=== PATIENT | male | born 1975 | race Caucasian/White ===

== ENCOUNTER 2021-01-05 19:24 | Emergency (ER) | payer OTHER ==
[2021-01-05 20:47] LABS: HEMOGLOBIN 12.9 gm/dl (14.0-17.5); RED BLOOD COUNT 4.35 M/UL (4.20-5.50); WHITE BLOOD COUNT 7.3 K/UL (4.5-11.0)
[2021-01-05 21:15] LABS: BUN/CREATININE RATIO 18 (0-10)
[2021-01-05] MEDS ORDERED: IBUPROFEN600 MG PO (21:49)
== END 2021-01-05 21:54 | disposition home or self-care (01) ==
LOC: ER1 19:24
PROVIDERS: Physician Assistant Medical
DX: S60.221A Contusion of right hand, initial encounter (principal); S80.212A Abrasion, left knee, initial encounter; M25.561 Pain in right knee; R60.0 Localized edema; F17.210 Nicotine dependence, cigarettes, uncomplicated; W22.8XXA Striking against or struck by other objects, initial encounter
CPT/HCPCS: 71045; 73130; 73564; 80053; 82550; 82553; 83874; 83880; 84484; 85025; 93005; 99284

== ENCOUNTER 2021-02-10 16:42 | Inpatient (IN) | payer OTHER ==
[~2021-02-10] VITALS: Ht 180.3 cm; Wt 83.9 kg
[~2021-02-10 16:42] MED LIST: IBUPROFEN600 MG PO
[2021-02-10 18:14] LABS: HEMOGLOBIN 13.8 gm/dl (14.0-17.5); RED BLOOD COUNT 4.63 M/UL (4.20-5.50); WHITE BLOOD COUNT 11.9 K/UL (4.5-11.0)
[2021-02-10 18:32] LABS: BUN/CREATININE RATIO 12 (0-10)
[2021-02-11 02:10] LABS: BORDETELLA PARAPERTUSSIS Not Detected (Not Detectd); BORDETELLA PERTUSSIS Not Detected (Not Detectd); CHLAMYDIA PNEUMONIAE Not Detected (Not Detectd); CORONAVIRUS HKU1 Not Detected (Not Detectd); CORONAVIRUS NL63 Not Detected (Not Detectd); CORONAVIRUS OC43 Not Detected (Not Detectd); CORONOAVIRUS 229E Not Detected (Not Detectd); HUMAN METAPNEUMOVIRUS Not Detected (Not Detectd); HUMAN RHINOVIRUS/ENTEROVIRUS Not Detected (Not Detectd); INFLUENZA A Not Detected (Not Detectd); INFLUENZA B Not Detected (Not Detectd); MYCOPLASMA PNEUMONIAE Not Detected (Not Detectd); PARAINFLUENZA VIRUS 1 Not Detected (Not Detectd); PARAINFLUENZA VIRUS 2 Not Detected (Not Detectd); PARAINFLUENZA VIRUS 3 Not Detected (Not Detectd); PARAINFLUENZA VIRUS 4 Not Detected (Not Detectd); RESPIRATORY SYNCYTIAL VIRUS Not Detected (Not Detectd)
[2021-02-11 04:08] LABS: SARS-CoV-2 NOT DETECTED (Not Detectd)
[2021-02-11 08:55] LABS: HEMOGLOBIN 13.1 gm/dl (14.0-17.5); RED BLOOD COUNT 4.42 M/UL (4.20-5.50)
[2021-02-11 08:58] LABS: WHITE BLOOD COUNT 8.4 K/UL (4.5-11.0)
[2021-02-11 09:34] LABS: BUN/CREATININE RATIO 9 (0-10)
[2021-02-12 04:36] LABS: HEMOGLOBIN 11.7 gm/dl (14.0-17.5); RED BLOOD COUNT 4.03 M/UL (4.20-5.50); WHITE BLOOD COUNT 8.2 K/UL (4.5-11.0)
[2021-02-12 05:17] LABS: BUN/CREATININE RATIO 8 (0-10)
[2021-02-13 05:41] LABS: HEMOGLOBIN 13.2 gm/dl (14.0-17.5); WHITE BLOOD COUNT 8.2 K/UL (4.5-11.0)
[2021-02-13 05:45] LABS: RED BLOOD COUNT 4.51 M/UL (4.20-5.50)
[2021-02-13 05:56] LABS: BUN/CREATININE RATIO 7 (0-10)
[2021-02-13] MEDS ORDERED: AMOX TR-K CLV1 EAC4 PO (13:24)
[2021-02-14 08:14] LABS: HIV SCREEN 4TH GENERATION WRFX Non Reactive (Non Reactive)
[2021-02-14 09:14] LABS: HBSAG SCREEN Negative (Negative); HEP A AB, IGM Negative (Negative); HEP B CORE AB, IGM Negative (Negative); HEP C VIRUS AB <0.1 (0.0-0.9)
== END 2021-02-13 15:45 | disposition admitted as inpatient to this hospital (09) | DRG 177 ==
LOC: ER1 16:42 → CDU 22:10 → MED SURG 4 22:10 → M/S 22:10 → MED SURG 4 02-11 07:21 → M/S 02-11 19:04
PROVIDERS: Internal Medicine; Physician Assistant; Preventive Medicine Occupational Medicine; ADMIT Internal Medicine
PROC: B24BZZ4 Ultrasonography of Heart with Aorta, Transesophageal (ICD-10-PCS; principal; 2021-02-11)
DX: J69.0 Pneumonitis due to inhalation of food and vomit (principal); J85.1 Abscess of lung with pneumonia; T17.890A Other foreign object in other parts of respiratory tract causing asphyxiation, initial encounter; F19.10 Other psychoactive substance abuse, uncomplicated; F17.210 Nicotine dependence, cigarettes, uncomplicated; F15.10 Other stimulant abuse, uncomplicated; X58.XXXA Exposure to other specified factors, initial encounter; F12.10 Cannabis abuse, uncomplicated; Z83.3 Family history of diabetes mellitus; Z82.49 Family history of ischemic heart disease and other diseases of the circulatory system; Z86.11 Personal history of tuberculosis
CPT/HCPCS: ECHO; 36415; 71260; 80048; 80053; 80074; 80202; 80307; 81001; 83690; 83735; 85025; 85652; 86140; 87040; 87070; 87081; 87086; 87205; 87389; 87633; 93306; 96365; 96368; 96375; 99285; J1170; J1885; J2405; J2543; J3370; J7030; J7070; Q9967

== ENCOUNTER → 2021-07-03 | Outpatient (CLI) | payer OTHER ==
[~2021-07-03] MED LIST changes: +AMOX TR-K CLV1 EAC4 PO
== END ==
LOC: EXRD 10:35
DX: J85.1 Abscess of lung with pneumonia (principal)
CPT/HCPCS: 71046